=== PATIENT | male | born 1970 ===

== ENCOUNTER 2018-02-06 14:00 | Outpatient (RCR) | payer MEDICARE | END 2018-02-14 | disposition home or self-care (01) | LOC: WCC 14:00 | DX: L98.492 Non-pressure chronic ulcer of skin of other sites with fat layer exposed (principal); L98.491 Non-pressure chronic ulcer of skin of other sites limited to breakdown of skin; E11.622 Type 2 diabetes mellitus with other skin ulcer; L73.2 Hidradenitis suppurativa; I11.9 Hypertensive heart disease without heart failure; Z79.82 Long term (current) use of aspirin; Z79.84 Long term (current) use of oral hypoglycemic drugs ==

== ENCOUNTER 2018-02-06 14:52 | Outpatient (CLI) | payer MEDICARE | END 2018-02-06 16:53 | disposition home or self-care (01) | LOC: WCC 14:52 | DX: Z53.9 Procedure and treatment not carried out, unspecified reason (principal) ==